=== PATIENT | female | born 1980 | race Caucasian/White ===

== ENCOUNTER 2019-01-14 21:52 | Emergency (ER) | payer MEDICAID ==
[~2019-01-14] VITALS: Ht 142.2 cm; Wt 66.9 kg
[2019-01-14 22:01] VITALS: Ht 142.2 cm; Wt 66.9 kg
--- NOTE | 2019-01-15 03:26 | ERD ---
ER Documentation Chief Complaint Chief Complaint AP AND BLEEDING POST FALL. NO HEAD TRAUMA. REPORTS CLEAR DISCHARGE. HPI This is a 38-year-old female patient who presents to the emergency room with complaint of abdominal pain and vaginal bleeding after slipping and falling onto stomach after getting a cramp in her right leg. Patient is 6 weeks . Reports right leg feels swollen and continues to be crampy. No chest pain, no shortness of breath. Denies prolonged immobility, denies history of blood clots. LMP: "6 weeks ago" History and physical exam and plan of care discussion performed via spanish interpreter services ROS All systems reviewed and are negative except as per history of present illness. Allergies Allergies: Coded Allergies: No Known Drug Allergies (Verified Allergy, Unknown, 01/20/14) PMhx/Soc Medical and Surgical Hx: pt denies Medical Hx, pt denies Surgical Hx Hx Alcohol Use: No Hx Substance Use: No Hx Tobacco Use: No Smoking Status: Never smoker FmHx Family History: No diabetes, No coronary disease, No other Physical Exam Vitals Vital Signs Date Temp Pulse Resp B/P (MAP) Pulse Ox O2 O2 Flow FiO2 Time Delivery Rate 01/15/19 98.9 68 17 138/67 100 Room Air 06:32 (90) 01/14/19 97.1 74 16 124/72 99 22:01 (89) Physical Exam Const: No acute distress Head: Atraumatic Eyes: Normal Conjunctiva ENT: Normal External Ears, Nose and Mouth. Neck: Full range of motion. No meningismus. Resp: Clear to auscultation bilaterally Cardio: Regular rate and rhythm, no murmurs Abd: Soft, tender @ umbilicus & LUQ, non distended. Normal bowel sounds Skin: No petechiae or rashes Back: No midline or flank tenderness Ext: No cyanosis, or edema, RLE: pain in posterior leg with flexion of knee, +posterior leg pain with flexion of foot, mild swelling, normothermic, +csm Neur: Awake and alert Psych: Normal Mood and Affect Result Diagram: 01/15/19 0329 01/15/19 0329 Results 24 hrs Laboratory Tests Test 01/15/19 02:38 01/15/19 02:41 01/15/19 03:29 POC Beta HCG, Qualitative POSITIVE Bedside Urine pH (LAB) 5.5 Bedside Urine Protein (LAB) Negative Bedside Urine Glucose (UA) Negative Bedside Urine Ketones (LAB) Negative Bedside Urine Blood Trace-intact Bedside Urine Nitrite (LAB) Negative Bedside Urine Leukocyte Esterase Negative (L White Blood Count 9.9 10^3/ul Red Blood Count 4.14 10^6/ul Hemoglobin 12.7 g/dl Hematocrit 37.8 % Mean Corpuscular Volume 91.3 fl Mean Corpuscular Hemoglobin 30.7 pg Mean Corpuscular 33.6 g/dl Hemoglobin Concent Red Cell Distribution Width 13.2 % Platelet Count 199 10^3/UL Mean Platelet Volume 9.9 fl Immature Granulocytes % 0.500 % Neutrophils % 63.7 % Lymphocytes % 24.5 % Monocytes % 9.1 % Eosinophils % 1.9 % Basophils % 0.3 % Nucleated Red Blood Cells % 0.0 /100WBC Immature Granulocytes # 0.050 10^3/ul Neutrophils # 6.3 10^3/ul Lymphocytes # 2.4 10^3/ul Monocytes # 0.9 10^3/ul Eosinophils # 0.2 10^3/ul Basophils # 0.0 10^3/ul Nucleated Red Blood Cells # 0.0 10^3/ul Prothrombin Time 12.3 Sec Prothrombin Time Ratio 1.0 INR International 0.90 Normalized Ratio Activated Partial Thromboplast 24.9 Sec Time Urine Color YELLOW Urine Clarity CLEAR Urine pH 5.0 Urine Specific Tererro 1.020 Urine Ketones NEGATIVE mg/dL Urine Nitrite NEGATIVE mg/dL Urine Bilirubin NEGATIVE mg/dL Urine Urobilinogen NEGATIVE mg/dL Urine Leukocyte Esterase NEGATIVE Leidy/ul Urine Microscopic RBC 1 /HPF Urine Microscopic WBC 1 /HPF Urine Squamous Epithelial Cells FEW /HPF Urine Mucus FEW /HPF Urine Hemoglobin 1+ mg/dL Urine Glucose NEGATIVE mg/dL Urine Total Protein NEGATIVE mg/dl Sodium Level 141 mmol/L Potassium Level 3.8 mmol/L Chloride Level 107 mmol/L Carbon Dioxide Level 23 mmol/L Anion Gap 11 Blood Urea Nitrogen 15 mg/dl Creatinine 0.46 mg/dl Est Glomerular Filtrat > 60 mL/min Rate mL/min Glucose Level 101 mg/dl Calcium Level 9.7 mg/dl Total Bilirubin 0.3 mg/dl Direct Bilirubin 0.00 mg/dl Indirect Bilirubin 0.3 mg/dl Aspartate Amino Transf (AST/SGOT) 22 IU/L Alanine 18 IU/L Aminotransferase (ALT/SGPT) Alkaline Phosphatase 89 IU/L Total Protein 7.7 g/dl Albumin 4.4 g/dl Globulin 3.30 g/dl Albumin/Globulin Ratio 1.33 Beta HCG, Quantitative 94272.0 mIU/ml Procedures/MDM This is a 38-year-old female patient who presents with abdominal pain and vaginal bleeding. ED COURSE: The patient was stable throughout ED course. I kept the patient and/or family informed of laboratory and diagnostic imaging results throughout the ED course. DIAGNOSTIC IMAGING: No sonographic evidence for right lower extremity deep venous thrombosis. Single early intrauterine gestation of approximately 6 weeks 0 days without evidence for a pole at this time. Clinical correlation and follow-up ultrasound is suggested. Read by radiologist. PROCEDURES: None. MEDICATIONS GIVEN: Declined. MDM: Differentials included DVT, fracture, sprain, blunt force abdominal trauma in . Patient's symptoms have stabilized while in the department. Patient denies vaginal bleeding. No abdominal discomfort. Pt ambulating without difficulty. No leg swelling or claudication at time of discharge. No evidence of symptomatic anemia, sepsis, or surgical abdomen. Extensive discussion with family and patient that occult disease cannot be ruled out. Patient to follow up with utility tractor operator in the next couple of days for re-examination. Patient was instructed on RICE for treatement of her knee. DISPOSITION: The patient has been discharge home to follow-up with community physician. Departure Diagnosis: Primary Impression: Abdominal pain Additional Impression: Knee pain Condition: Stable Patient Instructions: Abdominal Pain, Knee Sprain Comments see FITZ MALIK NP Jan 15, 2019 03:26
[2019-01-15 06:32] VITALS: BP 138/67; PULSE 68; RESP 17
== END 2019-01-15 06:33 | disposition home or self-care (01) ==
LOC: FTE 21:52
DX: O26.891 Other specified pregnancy related conditions, first trimester (principal); R10.9 Unspecified abdominal pain; O99.89 Other specified diseases and conditions complicating pregnancy, childbirth and the puerperium; M25.561 Pain in right knee; Z3A.01 Less than 8 weeks gestation of pregnancy
CPT/HCPCS: 36415; 76801; 76817; 80053; 81001; 81003; 81025; 84702; 85025; 85610; 85730; 86900; 86901; 93971

== ENCOUNTER 2019-02-10 05:11 | Emergency (ER) | payer MEDICAID ==
[~2019-02-10] VITALS: Ht 149.9 cm; Wt 65.9 kg
[2019-02-10 05:12] VITALS: PULSE 75; Ht 149.9 cm; Wt 65.9 kg
--- NOTE | 2019-02-10 06:27 | ERD ---
ER Documentation Chief Complaint Chief Complaint C/O VAGINAL BLEEDING X1 WEEK, 8 WEEKS PREG HPI This is a 38-year-old female, -0-0-3 who presents at roughly 8 weeks with complaints of vaginal spotting x5 days. Patient states that she grew concerned today because she passed a small nickel sized clot. Patient states that she is not bleeding enough to wear any pads. Patient was last seen by her OB doctor 3 weeks ago and had an ultrasound at that time which was normal. Patient's next appointment with her OB is on February 20. denies any vaginal pain, abdominal cramping/pain, back pain, nausea, vomiting, diarrhea, co nstipation, dizziness, lightheadedness, chest pain, shortness of breath, dysuria, hematuria, and all other symptoms. No known drug allergies. Patient is unsure of date of LMP - believes she had menses in september. OB clinic is through [facility] - patient unsure of OB name. ROS All systems reviewed and are negative except as per history of present illness. Allergies Allergies: Coded Allergies: No Known Drug Allergies (Verified Allergy, Unknown, 01/20/14) PMhx/Soc Medical and Surgical Hx: pt denies Medical Hx, pt denies Surgical Hx Hx Alcohol Use: No Hx Substance Use: No Hx Tobacco Use: No FmHx Family History: No diabetes Physical Exam Vitals Vital Signs Date Temp Pulse Resp B/P (MAP) Pulse Ox O2 O2 Flow FiO2 Time Delivery Rate 02/10/19 97.4 75 17 135/77 98 05:12 (96) Physical Exam Physical Exam Vitals signs: Reviewed by me. General: Well developed, well nourished, in no acute distress. Patient is awake and alert. Resting peacefully on stretcher Head: Normocephalic, atraumatic. Eyes: Normal conjunctiva, EOM intact grossly ENT: Pharynx is clear, Moist mucous membranes, external ears, nose and mouth no rmal Neck: Supple, no masses, lymphadenopathy or JVD Respiratory: Clear to auscultation bilaterally with no wheezing, rhonchi, rales, no distress Cardiovascular: RRR, no murmurs, rubs, or gallops Abdominal: Soft, nondistended, no peritoneal signs, no rigidity, no surgical abdomen, bowel sounds present all 4 quadrants, nontender light deep palpation all 4 quadrants, no suprapubic tenderness, McBurney's point nontender, no rebound tenderness : Deferred MSK: No edema, no unilateral swelling Back: No midline tenderness. Neurologic: Alert and oriented, moving all extremities, normal speech, no focal weakness, no cerebellar signs. Normal mentation Skin: warm and dry, No rash Psych: Normal mood Result Diagram: 02/10/19 0639 02/10/19 0639 Results 24 hrs Laboratory Tests Test 02/10/19 06:38 02/10/19 06:39 Urine Color YELLOW Urine Clarity CLEAR Urine pH 7.0 Urine Specific Cascade 1.017 Urine Ketones NEGATIVE mg/dL Urine Nitrite NEGATIVE mg/dL Urine Bilirubin NEGATIVE mg/dL Urine Urobilinogen NEGATIVE mg/dL Urine Leukocyte Esterase NEGATIVE Leidy/ul Urine Hemoglobin NEGATIVE mg/dL Urine Glucose NEGATIVE mg/dL Urine Total Protein NEGATIVE mg/dl White Blood Count 7.5 10^3/ul Red Blood Count 4.28 10^6/ul Hemoglobin 13.2 g/dl Hematocrit 39.7 % Mean Corpuscular Volume 92.8 fl Mean Corpuscular Hemoglobin 30.8 pg Mean Corpuscular Hemoglobin Concent 33.2 g/dl Red Cell Distribution Width 13.2 % Platelet Count 197 10^3/UL Mean Platelet Volume 9.7 fl Immature Granulocytes % 0.400 % Neutrophils % 66.2 % Lymphocytes % 23.1 % Monocytes % 8.1 % Eosinophils % 1.9 % Basophils % 0.3 % Nucleated Red Blood Cells % 0.0 /100WBC Immature Granulocytes # 0.030 10^3/ul Neutrophils # 5.0 10^3/ul Lymphocytes # 1.7 10^3/ul Monocytes # 0.6 10^3/ul Eosinophils # 0.1 10^3/ul Basophils # 0.0 10^3/ul Nucleated Red Blood Cells # 0.0 10^3/ul Sodium Level 140 mmol/L Potassium Level 4.2 mmol/L Chloride Level 106 mmol/L Carbon Dioxide Level 25 mmol/L Anion Gap 9 Blood Urea Nitrogen 10 mg/dl Creatinine 0.46 mg/dl Est Glomerular Filtrat Rate mL/min > 60 mL/min Glucose Level 99 mg/dl Calcium Level 9.4 mg/dl Total Bilirubin 0.6 mg/dl Direct Bilirubin 0.00 mg/dl Indirect Bilirubin 0.6 mg/dl Aspartate Amino Transf (AST/SGOT) 20 IU/L Alanine Aminotransferase (ALT/SGPT) 16 IU/L Alkaline Phosphatase 75 IU/L Total Protein 7.6 g/dl Albumin 4.6 g/dl Globulin 3.00 g/dl Albumin/Globulin Ratio 1.53 Beta HCG, Quantitative 56763.0 mIU/ml Procedures/MDM EKG, MONITORS, & DIAGNOSTIC IMAGING: [place] [id number] Radiology Main Line: [phone] DIAGNOSTIC IMAGING REPORT Patient: LUTHER CUTLER : 1980 Age: 38 Sex: F MR #: [id number] DOS: 02/10/19 0613 Ordering MD: EVANS SOLIS PA-C Location: [facility] Room/Bed: PROCEDURE: Ultrasound of the pelvis. CLINICAL INDICATION: Vaginal bleeding. TECHNIQUE: Transabdominal [<and transvaginal>] ultrasound of the pelvis was performed.>] COMPARISON: US PELVIS 01/15/2019 FINDINGS: LAST MENSTRUAL PERIOD: 11/09/2018. UTERUS and GESTATIONAL SAC Uterus: The uterus measures 10.7 x 6.2 x 7.2 cm. There is a uterine fibroid measuring 3.2 x 2.2 x 3.2 cm. Mean gestational sac diameter: 2.23 cm; estimated gestational age 7 weeks 0- days. Previous ultrasound dated 01/15/2019 revealed an intrauterine gestational sac approximately 6 weeks 0 days. Yolk sac: None polarity: None. OVARIES Right ovary: Not seen. Left ovary: Not seen. Cul-de-sac: There is no free fluid. IMPRESSION: 1. Intrauterine gestational sac correlating to a gestational age of 7 weeks 0 days. There is still no polarity or yolk sac identified. Correlation with serial quantitative beta HCG levels and short term follow-up pelvic ultrasound is recommended. 2. Uterine fibroid measuring 3.2 x 2.2 x 3.2 cm [<RPTAT: HRSR>] Physician Jose Date Time Electronically viewed and signed by Dyllan Trotter Physician on 02/10/2019 07:32 RR/ CC: EVANS SOLIS PA-C [id number] LAB INTERPRETATION: CBC shows no evidence of hemorrhage or infection Chemistry shows no evidence of significant electrolyte abnormalities or renal insufficiency Liver function test shows no evidence of acute biliary or hepatic dysfunction Urinalysis unremarkable Blood type O+ HCG [id number] ER COURSE: The patient was stable throughout ED course. I kept the patient and/or family informed of laboratory and diagnostic imaging results throughout the emergency room course. The patient was promptly evaluated and a treatment plan was devised based on H&P and other data. This plan was discussed with the patient who agreed and had no further questions or concerns prior to discharge. MEDICAL DECISION MAKING: This is a 38 year-old female, G [id number], who presents with vaginal bleeding at roughly 8 weeks . Upon reviewing patient's prior visits to the emergency department she was seen here on 01-15-2019 and had an ultrasound performed which showed a intrauterine gestational sac correlating to 6 weeks . Patient's ultrasound today shows an intrauterine gestational sac correlating to a gestational age of 7 weeks and 0 days. On the ultrasound today there is no polarity and no yolk [place]. [place] [address]. The hCG on 01-15-19 was 41236. Given these findings and the discrepancies I am concerned for a unviable . This is likely an incomplete . Advised patient that she will need to follow-up with her OB specialist in the next 48 hours to discuss options that she may need a D&C to remove products of conception. Ectopic not visualized. Patient is O+ and does not require any rhogam. She is hemodynamically stable. At this time there is no [facility] emergency. Advised to return to ER with any worsening symptoms. DISPOSITION PLAN: We discussed follow up with the patient's primary care doctor within 24 to 48 hours. Patient counseled regarding my diagnostic impression and care plan. Prior to discharge all questions answered. Pt agrees with treatment plan and understands strict return precautions. Precautionary instructions provided including instructions to return to the ER if not improving or for any worsening or changing symptoms or concerns. SPECIALIST FOLLOW UP RECOMMENDED: OBGYN Patient has been advised to follow up with primary care in 1-2 days. Disclaimer: Inadvertent spelling and grammatical errors are likely due to EHR/dictation software use and do not reflect on the overall quality of patient care. Also, please note that the electronic time recorded on this note does not necessarily reflect the actual time of the patient encounter. Departure Diagnosis: Primary Impression: Incomplete Condition: Stable Patient Instructions: Miscarriage (Incomplete) Referrals: [facility] REFERRAL LIST Additional Instructions: Paciente aconseja volver a Departamento de urgencias inmediatamente para sntomas nuevos o que empeoran . Paciente aconseja posteriores con el PCP en 1-2 garcia . Paciente verbaliza la comprehensin y est de acuerdo con el tratamiento y el curso de accin. Si el paciente no tiene ninguna de atencin primaria pueden seguir con [facility] [address] [place] [address] o [facility] + [address] [address] EVANS SOLIS PA-C February 10, 2019 06:27
[2019-02-10 08:20] VITALS: BP 121/66; RESP 18
== END 2019-02-10 08:30 | disposition home or self-care (01) ==
LOC: FTE 05:11
DX: O03.4 Incomplete spontaneous abortion without complication (principal)
CPT/HCPCS: 36415; 76801; 76817; 80053; 81003; 84702; 85025; 86900; 86901; Z7502

== ENCOUNTER 2019-02-13 05:38 | Emergency (ER) | payer MEDICAID ==
[~2019-02-13] VITALS: Ht 152.4 cm; Wt 65.6 kg
[2019-02-13 05:40] VITALS: BP 126/60; PULSE 78; RESP 16; Ht 152.4 cm; Wt 65.6 kg
[2019-02-13] MEDS ORDERED: HYDR-4011 PO (08:56)
--- NOTE | 2019-02-13 09:38 | ERD ---
ER Documentation Chief Complaint Chief Complaint pt reports 7 wks preg and VB and heavy bleeding today HPI 38-year-old female presenting with vaginal bleeding. Patient's approximately 7 weeks . G4, . She is been Passing clots that started last night but has been bleeding for the last week. She has been seen at OB with [facility]. Has some mild suprapubic tenderness. Denies medical problems. NKDA. Surgical history denies. Social history denies ROS All systems reviewed and are negative except as per history of present illness. Medications Home Meds Active Scripts Hydrocodone/Acetaminophen ([place] 5-325 Tablet) 1 Each Tablet, 1 TAB PO Q6H PRN for PAIN, #7 TAB Prov:SCARLET SALAZAR PA-C 02/13/19 Allergies Allergies: Coded Allergies: No Known Drug Allergies (Verified Allergy, Unknown, 01/20/14) PMhx/Soc Medical and Surgical Hx: pt denies Medical Hx, pt denies Surgical Hx Hx Alcohol Use: No Hx Substance Use: No Hx Tobacco Use: No FmHx Family History: No diabetes, No coronary disease, No other Physical Exam Vitals Vital Signs Date Temp Pulse Resp B/P (MAP) Pulse Ox O2 O2 Flow FiO2 Time Delivery Rate 02/13/19 97.9 78 16 126/60 100 05:40 (82) Physical Exam GENERAL: The patient is well-appearing, well-nourished, in no acute distress HEENT: Atraumatic. Conjunctivae are pink. Pupils equal, round, and reactive to light. There is no scleral icterus. Tympanic membranes clear bilaterally. Oropharynx clear. NECK: C-spine is soft and supple. There is no meningismus. There is no cervical lymphadenopathy. CHEST: Clear to auscultation bilaterally. There are no rales, wheezes or rhonchi. HEART: Regular rate and rhythm. No murmurs, clicks, rubs or gallops. ABDOMEN:Soft, nontender and nondistended. Good bowel sounds. No rebound or guarding. No gross peritonitis. No gross organomegaly or masses. Result Diagram: 02/13/1960402/13/19604 Results 24 hrs Laboratory Tests Test 02/13/19 06:05 White Blood Count 9.4 10^3/ul Red Blood Count 3.77 10^6/ul Hemoglobin 11.9 g/dl Hematocrit 35.2 % Mean Corpuscular Volume 93.4 fl Mean Corpuscular Hemoglobin 31.6 pg Mean Corpuscular Hemoglobin Concent 33.8 g/dl Red Cell Distribution Width 13.2 % Platelet Count 177 10^3/UL Mean Platelet Volume 9.5 fl Immature Granulocytes % 0.400 % Neutrophils % 71.1 % Lymphocytes % 18.5 % Monocytes % 8.2 % Eosinophils % 1.5 % Basophils % 0.3 % Nucleated Red Blood Cells % 0.0 /100WBC Immature Granulocytes # 0.040 10^3/ul Neutrophils # 6.7 10^3/ul Lymphocytes # 1.7 10^3/ul Monocytes # 0.8 10^3/ul Eosinophils # 0.1 10^3/ul Basophils # 0.0 10^3/ul Nucleated Red Blood Cells # 0.0 10^3/ul Sodium Level 139 mmol/L Potassium Level 3.8 mmol/L Chloride Level 108 mmol/L Carbon Dioxide Level 25 mmol/L Anion Gap 6 Blood Urea Nitrogen 10 mg/dl Creatinine 0.44 mg/dl Est Glomerular Filtrat Rate mL/min > 60 mL/min Glucose Level 110 mg/dl Calcium Level 8.7 mg/dl Total Bilirubin 0.6 mg/dl Direct Bilirubin 0.00 mg/dl Indirect Bilirubin 0.6 mg/dl Aspartate Amino Transf (AST/SGOT) 16 IU/L Alanine Aminotransferase (ALT/SGPT) 17 IU/L Alkaline Phosphatase 74 IU/L Total Protein 6.7 g/dl Albumin 3.8 g/dl Globulin 2.90 g/dl Albumin/Globulin Ratio 1.31 Beta HCG, Quantitative 6576.0 mIU/ml Procedures/MDM DIAGNOSTIC IMAGING REPORT Patient: LUTHER CUTLER : 1980 Age: 38 Sex: F MR #: [id number] DOS: 02/13/19 0553 Ordering MD: EVANS SOLIS PA-C Location: [facility] Room/Bed: PROCEDURE: First trimester obstetrical ultrasound. CLINICAL INDICATION: . Evaluate size and dates. Abnormal prior ultrasound. TECHNIQUE: Transabdominal and transvaginal valdovinos scale and color Doppler ultrasound of the uterus. COMPARISON: US PELVIS 02/10/2019 FINDINGS: Intrauterine : Present. Ectopic : None. Mean sac diameter: 1.93 cm. The gestational sac is herniating into the lower uterine segment and cervical canal. Yolk sac diameter: None. Peralta-rump length: None. heart rate: N/A Cervix: Dilated. Ovaries: Not visualized. Free fluid: None. IMPRESSION: 1. Nonviable intrauterine .. 2. Again, no yolk sac or embryonic pole identified, similar to the prior study. 3. There is now descent and partial passage of the gestational sac into the cervical canal. 4. Findings consistent with a spontaneous in progress. MDM: 38-year-old female presenting with vaginal bleeding. Beta hCG levels are decreased since last visit patient has IUP noted to be within the cervical canal. She has bleeding and in the middle of spontaneous . Patient is hemodynamically stable. Does not require RhoGam injection. Patient is nontoxic-appearing. Patient is discharged and recommended to follow-up with primary care doctor. Patient was told symptoms change or worsen to return immediately to the ER. Pain is well controlled. All questions answered at discharge Departure Diagnosis: Primary Impression: Miscarriage Condition: Stable Patient Instructions: Miscarriage (Incomplete) Referrals: TREND INVESTIGATOR [place] [id number] [facility] [address] [place] [address]ABUSLEME KERI [address] [place], [place] [id number] [facility] [address] [place] [address] [address] [facility] [address] [facility], [address] [address] [address]LL[address] [address] [place], [place] [id number] [facility] [address] [place] [address] [facility] [address] - [place], [facility] [address] [address] HENAO, MABEL [address] [facility]. [address], [facility] [address] [address] [address] [place] [address] Additional Instructions: Call your primary care doctor TOMORROW for an appointment during the next 1-2 days.See the doctor sooner or return here if your condition worsens before your appointment time. SCARLET SALAZAR PA-C February 13, 2019 09:38
== END 2019-02-13 09:03 | disposition home or self-care (01) ==
LOC: FTE 05:38
DX: O03.9 Complete or unspecified spontaneous abortion without complication (principal); Z3A.01 Less than 8 weeks gestation of pregnancy
CPT/HCPCS: 36415; 76801; 76817; 80053; 84702; 85025; Z7502